=== PATIENT | male | born 1940 | race Caucasian/White ===

== ENCOUNTER 2016-10-22 21:26 | Inpatient (IN) | payer OTHER ==
--- NOTE | ~2016-10-22 | CN ---
Consultation Report [facility] [address] [place]. [address] NAME: ARON SALINAS : [birth year] STATUS : ADM IN PAT#: [id number] AGE: 76 ADM/REG DATE : 10/22/16 MR#: [id number] REPORT SERV DATE: 10/26/16 DICTATED BY: ZULAY KERNS DATE: 10/25/16 REPORT STATUS : Draft TRANSCRIBED BY: MODL DATE: 10/25/16 GI CONSULTATION DATE OF CONSULTATION: 10/25/2016 REASON FOR CONSULTATION: Coffee-ground emesis after receiving tPA. HISTORY OF PRESENT ILLNESS: Mr. Salinas is a 76-year-old gentleman who has been admitted under the service of Vascular Surgery who had a bilateral lower extremity venogram on the 10/24/2016 and was found to have iliofemoral and IVC DVT which has markedly improved after what appears to be infusion of tPA in both the lower extremities. Apparently, the patient has been found to have some sensitivity to heparin and has been started on Xarelto. The patient is on 15 mg of Xarelto b.i.d. The patient has had an episode of coffee-grounds emesis and we were consulted for further evaluation. The patient's hemoglobin this evening around 7 o'clock was 7.5. Earlier, it was 8.4 and 8.6. Yesterday, it was 7.9. The patient has not received any packed cell transfusions. The patient denies any history of peptic ulcer disease. HOME MEDICATIONS: Include insulin and other medications as listed. Presently, he is on Xarelto, Keppra, and other p.r.n. medications. PHYSICAL EXAMINATION: ABDOMEN: Soft and nondistended and nontender. There is no mass, guarding, rigidity, or rebound. Liver and spleen, not palpable. Clinically, no ascites. LABORATORY DATA: As mentioned above. IMPRESSION: Coffee-grounds emesis, after the patient received tPA and is now on Xarelto. Some mild drop in hemoglobin and hematocrit. RECOMMENDATIONS: We will need EGD. Discussed with the patient and I have also called the and discussed this with her over the phone. JJ/LORENA Carole Kerns M.D. Consultation Report [address] [place]. [address] NAME: ARON SALINAS : [birth year] STATUS : ADM IN PAT#: [id number] AGE: 76 ADM/REG DATE : 10/22/16 MR#: [id number] REPORT SERV DATE: 10/26/16 DICTATED BY: ZULAY KERNS DATE: 10/25/16 REPORT STATUS : Draft TRANSCRIBED BY: LORENA DATE: 10/25/16 / [id number] CC: Mesha Minaya MD
--- NOTE | ~2016-10-22 | EGD ---
EGD REPORT [facility] [address] [place] [address] NAME: ARON SALINAS : 38 STATUS : ADM IN PAT#: [id number] AGE: 76 ADM/REG DATE : 10/22/16 MR#: [id number] REPORT SERV DATE: 10/26/16 DICTATED BY: ZULAY WHITAKER DATE: 10/26/16 REPORT STATUS : Draft TRANSCRIBED BY: [employer] DATE: 10/26/16 [facility] Patient Name: Aron Salinas. Date of : 1940 Attending MD: TMI WHITAKER MD Procedure Date No Time: 10/26/2016 Procedure: Upper GI endoscopy Indications: Hematemesis Referring MD: Jose Luis Wadsworth MD Medicines: See the Anesthesia note for documentation of the administered medications Complications: No immediate complications. Estimated blood loss: Minimal. Procedure: Pre-Anesthesia Assessment: - Prior to the procedure, a History and Physical was performed, and patient medications and allergies were reviewed. The patient's tolerance of previous anesthesia was also reviewed. The risks and benefits of the procedure and the sedation options and risks were discussed with the patient. All questions were answered, and informed consent was obtained. Prior Anticoagulants: The patient has taken Xarelto (rivaroxaban) and TPA, last doses were 1 day prior to procedure. ASA Grade Assessment: IV - A patient with severe systemic disease that is a constant threat to life. After reviewing the risks and benefits, the patient was deemed in satisfactory condition to undergo the procedure. After obtaining informed consent, the endoscope was passed under direct vision. Throughout the procedure, the patient's blood pressure, pulse, and oxygen saturations were monitored continuously. The GIF [id number] was introduced through the mouth, and advanced to the second part of duodenum. The upper GI endoscopy was accomplished without difficulty. The patient tolerated the procedure well. Findings: The examined duodenum was normal. Red blood was found in the stomach. LA Grade D (one or more mucosal breaks involving at least 75% of esophageal circumference) esophagitis with bleeding was found in the lower third of the esophagus. Moderate distal esophageal clot just at the GE junction. Large part of it was dislodged but small part still adherent and this was not removed as patient is on Xarelto and this appears organised. Also evidence of EGD REPORT [address] [place]. [address] NAME: ARON SALINAS : 38 STATUS : ADM [facility]#: [id number] AGE: 76 ADM/REG DATE : 10/22/16 MR#: [id number] REPORT SERV DATE: 10/26/16 DICTATED BY: ZULAY WHITAKER DATE: 10/26/16 REPORT STATUS : Draft TRANSCRIBED BY: [employer] DATE: 10/26/16 fresh blood in the distal esophagus Impression: - Normal examined duodenum. - Red blood in the stomach. - LA Grade D reflux and erosive esophagitis. - Moderate distal esophageal clot just at the GE junction. Large part of it was dislodged but small part still adherent and this was not removed as patient is on Xarelto and this appears organised. Also evidence of fresh blood in the distal esophagus Recommendation: - [facility]. - Clear liquid diet. - Will discuss with hospitalist and vascular service if anticoagulation can be held for 24-48 hours. - Will start on IV PPI drip Procedure Code(s): --- Professional --- 11933, Esophagogastroduodenoscopy, flexible, transoral; diagnostic, including collection of specimen(s) by brushing or washing, when performed (separate procedure) Diagnosis Code(s): --- Professional --- K92.2, Gastrointestinal hemorrhage, unspecified K21.0, Gastro-esophageal reflux disease with esophagitis K20.8, Other esophagitis K92.0, Hematemesis CPT copyright 2013 [employer]. All rights reserved. The codes documented in this report are preliminary and upon wrapper layer and examiner soft work review may be revised to meet current compliance requirements. TIM WHITAKER MD 10/26/2016 7:33 AM This report has been signed electronically. Number of Addenda: 0 Note Initiated On: 10/26/2016 6:40 AM Scope Withdrawal Time 0 hours 0 minutes 0 seconds [address] [place] [id number]
--- NOTE | ~2016-10-22 | OP ---
Record Of Operation [facility] [address] [place]. 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 PROCEDURES: 1. Bilateral lower extremity venogram. 2. Percutaneous angioplasty of the left femoral vein, common femoral vein, external iliac vein, common iliac vein. 3. Percutaneous angioplasty of the right external iliac and common iliac veins. 4. Percutaneous angioplasty of the IVC. SURGEON: Jose Luis Wadsworth M.D. RECORD MAKER: None. ANESTHESIA: MAC plus local. INDICATIONS: The patient is a 76-year-old gentleman who had extensive DVTs. I began thrombolysis overnight and he returns to the operating room for reassessment. DESCRIPTION OF PROCEDURE: After informed consent was obtained, the patient was taken to the operating room and placed in the supine position on the operating table. Monitored anesthesia was administered. The patient's groins and right neck were prepped and draped in the usual sterile fashion. I began by exchanging out my catheters and sheath for a new 11- Welsh sheath. A catheter was placed into the left SFA. A venogram demonstrated improvement in the thrombus. There was a stenosis within the left superficial femoral, common femoral, external iliac, common iliac, and inferior vena cava. I angioplastied the left superficial femoral, common femoral, and external iliac veins with a 10 mm balloon. I angioplastied the common iliac vein and the IVC with a 14 mm balloon. Imaging obtained afterwards showed improvement. I placed a catheter down into the right common femoral vein and obtained imaging that demonstrated external iliac and common iliac vein stenoses on the right. I angioplastied these with a 14 mm balloon. Imaging obtained afterwards showed improvement. Thus, I withdrew my wire, catheter, and sheath and used manual pressure for hemostasis. I placed a stitch additionally for hemostasis. The patient tolerated the procedure well without any intraprocedural complications noted. CHAIN MACHINE OPERATOR/LORENA Jose Luis Wadsworth M.D. Record Of Operation [address] [address] NAME: ARON QUINTANILLA : 38 STATUS : ADM IN [facility]#: [id number] AGE: 76 ADM/REG DATE : 10/22/16 MR#: [id number] REPORT SERV DATE: 10/27/16 DICTATED BY: JOSE LUIS WADSWORTH DATE: 10/27/16 REPORT STATUS : Draft TRANSCRIBED BY: LORENA DATE: 10/27/16 / [id number] CC: Mesha Minaya MD
--- NOTE | ~2016-10-22 | DS ---
Discharge Summary [facility] [address] [facility] [place]. [address] NAME: ARON QUINTANILLA : 38 STATUS : DIS IN PAT#: [id number] AGE: 76 ADM/REG DATE : 10/22/16 MR#: [id number] REPORT SERV DATE: 11/11/16 DICTATED BY: JOSE LUIS WADSWORTH DATE: 11/10/16 REPORT STATUS : Draft TRANSCRIBED BY: MODL DATE: 11/10/16 Data Collection from hospitalization DISCHARGE DIAGNOSES: 1. 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 2. Hypertension. 3. Type 2 diabetes. 4. Alzheimer disease. 5. Dementia. 6. History of cerebrovascular accident/transient ischemic attack. 7. Seizures. 8. Anemia. 9. Neuropathy. 10.Hearing loss. 11.Coronary artery disease. 12.History of myocardial infarction. 13.Asthma. 14.Chronic obstructive pulmonary disease. 15.Arthritis. 16.Anxiety and depression. 17.Benign prostatic hypertrophy. 18.Incontinence. CONSULTATION: Eileen Andrew NP. Dr. Prateek Kerns. PROCEDURES PERFORMED: 1. Bilateral lower extremity and inferior vena cava venogram; AngioJet pharmacomechanical thrombectomy and thrombolysis of the bilateral popliteal vein, femoral veins, common femoral veins, external iliac veins, common iliac veins, and inferior vena cava; infusion catheter placement bilaterally for continued thrombolysis, 10/23/2016. 2. Bilateral lower extremity venogram; percutaneous angioplasty of left femoral vein, common femoral vein, external iliac vein, common iliac vein; percutaneous angioplasty of right external iliac and common iliac veins; percutaneous angioplasty of the IVC, 10/24/2016. 3. Upper GI endoscopy, 10/26/2016. 4. Venous Doppler ultrasound of the left upper extremity, 10/25/2016. 5. CTA of the chest, 10/27/2016. DISCHARGE MEDICATIONS: Proscar 5 mg daily, Keppra 500 mg twice a day, Flomax 0.4 mg daily. He was not to continue metformin, albuterol, Lotensin, or Dexilant. Hospice would provide pain medication as needed. CONDITION AT DISCHARGE: Stable. DISPOSITION: The patient was discharged home to be followed by [facility]. HOSPITAL COURSE: This is a 76-year-old man, who has a history of deep venous thrombosis, who has had an IVC filter placed in the past, who now had a recurrent deep venous thrombosis Discharge Summary [facility] [address] [place]. [address] NAME: ARON QUINTANILLA : 38 STATUS : DIS IN PAT#: [id number] AGE: 76 ADM/REG DATE : 10/22/16 MR#: [id number] REPORT SERV DATE: 11/11/16 DICTATED BY: JOSE LUIS WADSWORTH DATE: 11/10/16 REPORT STATUS : Draft TRANSCRIBED BY: LORENA DATE: 11/10/16 after percutaneous thrombectomy a few months prior to this admission. He consented for intervention. We spoke to him extensively about performing an intervention as there were some concerns about spotting that he had in a stool. There were also some concern about the chronicity of the thrombus. The patient said that the pain was such that he could not tolerate it. He had no obvious evidence of phlegmasia, but he said that the swelling and tightness were unbearable. He agreed to proceed and was admitted to the hospital at this time for further evaluation and treatment. Upon admission, he was seen by Eileen Andrew. The patient has Alzheimer's dementia and was unable to give a history. Creatinine level was 1.11, potassium was 4.5. Venous Doppler ultrasound was obtained at [facility], which showed an extensive right lower extremity DVT from the groin inferiorly. CT scan of the chest showed small right lower lobe pulmonary embolus. CT scan of the abdomen showed that there had been placement of inferior vena cava filter. In 2010, a myocardial perfusion imaging study had shown left ventricular ejection fraction of 52%. He was on DVT and pulmonary embolus heparin protocol. He had been placed on telemetry. Portable chest x-ray was going to be checked. The patient was on metformin normally at home for his type 2 diabetes. He was being held n.p.o. for possible venogram the following morning. As he was able to eat, he was going to be placed on a 1500 calorie diabetic diet. A swallow evaluation was requested. EKG was going to be obtained. Hydralazine would be given if his blood pressure systolic was greater than 165. The patient's daughter states that he does have seizures and he is on Keppra at home. This was continued to prevent seizure. He was going to receive IV morphine for pain control. He would be watched for over sedation. The following day, he was taken to the operating room, where he underwent the above-mentioned procedure. He tolerated this well and there were no complications. On the , there was no oozing from the right internal jugular sheath site. He was afebrile. TPA infusion was going to be continued. He was in a normal sinus rhythm. IV fluids were stopped. He was taken back to the operating room, where he underwent the above-mentioned procedure. He tolerated this well and there were no complications. On the , he was resting quietly. Xarelto had been started as plan. The patient had a large area of swelling and bruising of the left biceps since the previous evening. Venous Doppler ultrasound of the left upper extremity was performed. An Deangelo compression wrap was going to be applied to the left arm. There was no evidence of deep venous thrombosis. He was seen by Dr. Prateek Kerns regarding coffee-grounds emesis after receiving tPA. The patient had an episode of coffee-grounds emesis. Hemoglobin that evening was around 7.5; earlier in the day, it had been 8.4 and 8.6; the day previously, it had been 7.9. He had not received any packed cell transfusion. He denies any history of peptic ulcer disease. It was felt that he would need to undergo an EGD. On 10/26/2016, he was taken to the endoscopic suite by Dr. Prateek Kerns, where he underwent upper GI endoscopy. He tolerated this well and there were no complications. He had a normal examined duodenum. There was red blood in the stomach. LA grade D reflux and erosive esophagitis were seen. He had moderate distal esophageal clot just at the GE junction. A large part of it was dislodged, but the small part was still adherent, and this was not removed as the patient is on Xarelto, and this appeared organized. There was also evidence of fresh blood in the distal esophagus. Compression remained on the bilateral lower extremities. Xarelto was on hold for now. Deangelo wrap was in place on the left biceps. The next day, he had been transfused packed red blood cells. He had not had a bowel Discharge Summary [place] [address] [place]. [address] NAME: ARON QUINTANILLA : 38 STATUS : DIS IN PAT#: [id number] AGE: 76 ADM/REG DATE : 10/22/16 MR#: [id number] REPORT SERV DATE: 11/11/16 DICTATED BY: JOSE LUIS WADSWORTH DATE: 11/10/16 REPORT STATUS : Draft TRANSCRIBED BY: LORENA DATE: 11/10/16 movement in several days. HIT panel was obtained. Lasix was given with packed red blood cells. A CTA of the chest was performed. He did complain of hunger pain. Full liquids were being provided. Anticoagulation remained on hold. He did complain of some left chest pain and back pain. He said it had been hurting all day. On the , his leg pain had improved. CTA had shown right lower lobe pulmonary embolus. Heparin had been started. Hemoglobin level was stable. Proton pump inhibitor drip was stopped. Carafate was being given. He was going to be placed on soft diet. He was evaluated by Physical Therapy. The next day, his lower extremity edema was unchanged. Hemoglobin was stable. Discharge planning was performed. His shortness of breath was stable. He still complained of some left chest pain with deep breathing. He does complain of chronic bilateral lower extremity pain. On 10/30/2016, he was in no acute distress. He remained afebrile. He had mild edema of the bilateral lower extremities. He had no tenderness. He said he had slept well. He had only slight chest pain. He was evaluated by [facility]. He said he was reluctant to go to rehab as he felt it was a halfway. Family had asked for a hospice consult as a backup option if he refused all rehab. [facility] liaison met with the patient and his . Hospice services and philosophies were discussed. Discharge instructions were given. Due to his improved and stable condition, he was discharged home to be followed by [facility] with the above-stated instructions. Information collected by: Aziza Samaniego I submit the above information as my discharge summary. AVIS/LORENA Jose Luis Wadsworth M.D. / [id number] CC: Mesha Minaya MD [facility] M.D.
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
--- NOTE | ~2016-10-22 | OP ---
Record Of Operation [facility] [address] [place]. [address] NAME: ARON QUINTANILLA : 38 STATUS : ADM IN [facility]#: [id number] AGE: 76 ADM/REG DATE : 10/22/16 MR#: [id number] REPORT SERV DATE: 10/23/16 DICTATED BY: JOSE LUIS WADSWORTH DATE: 10/23/16 REPORT STATUS : Draft TRANSCRIBED BY: MODL DATE: 10/23/16 DATE OF PROCEDURE: 10/23/2016 PREOPERATIVE DIAGNOSIS: Bilateral lower extremity deep venous thrombosis. 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 PROCEDURES: 1. Bilateral lower extremity and inferior vena cava venogram. 2. AngioJet pharmacomechanical thrombectomy and thrombolysis of the bilateral popliteal veins, femoral veins, common femoral veins, external iliac veins, common iliac veins, and inferior vena cava. 3. Infusion catheter placement bilaterally for continued thrombolysis. SURGEON: Jose Luis Wadsworth M.D. OPENER VERIFIER PACKER CUSTOMS: Lynn Rowell MD. ANESTHESIA: MAC plus local. INDICATIONS: The patient is a 76-year-old gentleman with a history of DVTs who has had an IVC filter placed in the past. 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 Thus, he was consented for intervention. I did talk to him extensively about performing an intervention, as I had some concerns about some spotting that he has in his stool. I also had some concerns about the chronicity of this thrombus. The patient says that the pain is such that he cannot tolerate it. He has no obvious evidence of phlegmasia, but he says that the swelling and tightness is unbearable. Thus, he, his , and his daughter all consented for intervention. DESCRIPTION OF PROCEDURE: After informed consent was obtained, the patient was taken to the operating room and placed in the supine position on the operating table. Monitored anesthesia was administered. The patient's bilateral lower extremities as well as right neck were prepped and draped in the usual sterile fashion. Ultrasound-guided access was obtained of the right internal jugular vein. The ultrasound image was documented on the chart. We passed a wire centrally. We got a wire down into the IVC and met some resistance at the level of the IVC filter. We placed the sheath and placed a catheter into the IVC by the filter. We obtained a venogram that demonstrated really little flow in the filter. We were able to get a wire and catheter into the left femoral vein. A venogram from this point demonstrated thrombus. I passed a wire and catheter down into the popliteal vein. A venogram from this point demonstrated thrombus. I then placed an 8-Guyanese 45 cm sheath and performed AngioJet pharmacomechanical thrombectomy and thrombolysis of the left popliteal vein, femoral vein, common femoral vein, external iliac vein, common iliac vein, and IVC. Imaging obtained afterwards showed improvement, but there was still a lot of residual thrombus. I then pulled back my wire and selected out the right femoral vein. Imaging from this point demonstrated thrombus. I moved a wire and catheter into the right popliteal Record Of [address] [place]. [address] NAME: ARON QUINTANILLA : 38 STATUS : ADM IN [facility]#: [id number] AGE: 76 ADM/REG DATE : 10/22/16 MR#: [id number] REPORT SERV DATE: 10/23/16 DICTATED BY: JOSE LUIS WADSWORTH DATE: 10/23/16 REPORT STATUS : Draft TRANSCRIBED BY: MODEliseo DATE: 10/23/16 vein. There was thrombus there also on imaging. I then performed AngioJet pharmacomechanical thrombectomy and thrombolysis of the right popliteal vein, femoral vein, common femoral vein, external iliac vein, common iliac vein, and IVC. Imaging obtained afterwards showed improvement, but still residual thrombus. I exchanged out my sheath for an 8-Guyanese sheath. I then pushed the infusion catheters with 50-cm treatment length extending from the popliteal veins into the femoral veins bilaterally. I had to use an additional introducer from a 5-Guyanese sheath to the help plug the hole from the valvular bleeding from the 11-Guyanese sheath. We also used bone wax to help seal off this valve. We were careful not to get it into our sheath. We began infusing thrombolytics through the catheters and heparin through the sheath. The patient tolerated the procedure well without any intraprocedural complications noted. RIMMA/LORENA Jose Luis Wadsworth M.D. / [id number] CC: Mesha Minaya MD
[2016-10-23 05:02] LABS: BASOPHILS 0.2 %; BASOPHILS ABSOLUTE 0.01 10/3/uL (0.0-0.16); EOSINOPHILS 8.6 %; EOSINOPHILS ABSOLUTE 0.51 10/3/uL (0.0-0.53); IMMATURE GRANULOCYTES 0.2 %; IMMATURE GRANULOCYTES ABSOLUTE 0.01 10/3/uL (0.0-0.11); LYMPHOCYTES 12.1 %; LYMPHOCYTES ABSOLUTE 0.72 10/3/uL (0.67-4.30); MEAN PLATELET VOLUME 11.1 fL (9.2-13.0); MONOCYTES 6.6 %; MONOCYTES ABSOLUTE 0.39 10/3/uL (0.21-1.20); NEUTROPHILS 72.3 %; NEUTROPHILS ABSOLUTE 4.29 10/3/uL (2.02-8.40); PLATELET COUNT 145 10/3/uL (150-400); RBC DISTRIBUTION WIDTH 15.3 % (12.0-16.0); WHITE BLOOD CELLS 5.9 10/3/uL (4.5-10.5)
[2016-10-23 05:03] LABS: HEMATOCRIT 29.3 % (40.0-51.0); HEMOGLOBIN 9.2 g/dL (13.6-17.8); MEAN CORPUS HGB CONC 31.4 g/dL (32.0-36.0); MEAN CORPUSCULAR HEMOGLOB 25.6 pg (26.0-34.0); MEAN CORPUSCULAR VOLUME 81.4 fL (80-100)
[2016-10-23 05:04] LABS: MANUAL DIFF NO %
[2016-10-23 05:08] LABS: ALBUMIN 3.5 G/DL (3.5-5.0); ALKALINE PHOSPHATASE 55 U/L (45-117); BUN (BLOOD UREA NITROGEN) 15 MG/DL (6-23); CALCIUM, SERUM 8.6 MG/DL (8.5-10.4); CHLORIDE, SERUM 105 MMOL/L (96-112); CO2 (CARBON DIOXIDE) 24 MMOL/L (24-34); CREATININE 0.98 MG/DL (0.70-1.30); GFR AFRICAN AMERICAN 86 ML/MIN (>=60); GFR NON AFRICAN AMERICAN 74 ML/MIN (>=60); GLOBULIN 3.4 G/DL (2.5-4.1); GLUCOSE, SERUM 127 MG/DL (60-99); PHOSPHORUS, SERUM 3.5 MG/DL (2.5-4.5); POTASSIUM, SERUM 3.9 MMOL/L (3.5-5.3); SGOT(AST) 14 U/L (5-40); SGPT(ALT) 15 U/L (5-65); SODIUM, SERUM 139 MMOL/L (135-148); TOTAL BILIRUBIN 0.4 MG/DL (0-1.2); TOTAL PROTEIN 6.9 G/DL (6.0-8.5)
[2016-10-23 05:17] LABS: ASCORBIC ACID (UR NOT ORDER) NEG (NEG); BILIRUBIN, URINE NEGATIVE (NEG); KETONE, URINE NEGATIVE (NEG); LEUKOCYTE ESTERASE(NOT OR NEG (NEG); WBC (NOT ORDERED) (RFLEX) 1 (0-5)
[2016-10-23] MEDS ORDERED: CLONAZEPAM (11:40)
[2016-10-23] MEDS ORDERED: ADVAIR (11:40)
[2016-10-23] MEDS ORDERED: BENAZEPRIL (11:40)
[2016-10-23] MEDS ORDERED: ALBUTEROL NEB (11:40)
[2016-10-23] MEDS ORDERED: DUONEB (11:41)
[2016-10-23] MEDS ORDERED: PROSCAR (11:41)
[2016-10-23] MEDS ORDERED: PLAVIX (11:41)
[2016-10-23] MEDS ORDERED: DEXILANT (11:41)
[2016-10-23] MEDS ORDERED: KEPPRA (11:41)
[2016-10-23] MEDS ORDERED: METFORMIN (11:41)
[2016-10-23] MEDS ORDERED: FLOMAX (11:41)
[2016-10-23] MEDS ORDERED: *UNABLE1 (11:42)
[2016-10-23 21:13] LABS: BASOPHILS 0.1 %; BASOPHILS ABSOLUTE 0.01 10/3/uL (0.0-0.16); EOSINOPHILS 1.7 %; EOSINOPHILS ABSOLUTE 0.15 10/3/uL (0.0-0.53); HEMATOCRIT 27.5 % (40.0-51.0); HEMOGLOBIN 8.4 g/dL (13.6-17.8); IMMATURE GRANULOCYTES 0.1 %; IMMATURE GRANULOCYTES ABSOLUTE 0.01 10/3/uL (0.0-0.11); LYMPHOCYTES 5.5 %; MEAN CORPUS HGB CONC 30.5 g/dL (32.0-36.0); MEAN CORPUSCULAR VOLUME 81.8 fL (80-100); MONOCYTES 5.3 %; MONOCYTES ABSOLUTE 0.48 10/3/uL (0.21-1.20); NEUTROPHILS 87.3 %; NEUTROPHILS ABSOLUTE 7.86 10/3/uL (2.02-8.40); NUCLEATED RED BLOOD CELLS 0.2 /100WBC (0-0); PARTIAL THROMBO TIME 46.7 SEC (22.5-37.2); PLATELET COUNT 110 10/3/uL (150-400); RBC DISTRIBUTION WIDTH 15.6 % (12.0-16.0); RED CELL COUNT 3.36 10/6/uL (4.7-6.1)
[2016-10-23 21:16] LABS: BUN (BLOOD UREA NITROGEN) 16 MG/DL (6-23); CALCIUM, SERUM 7.7 MG/DL (8.5-10.4); CHLORIDE, SERUM 108 MMOL/L (96-112); CO2 (CARBON DIOXIDE) 24 MMOL/L (24-34); CREATININE 1.13 MG/DL (0.70-1.30); GFR AFRICAN AMERICAN 72 ML/MIN (>=60); GFR NON AFRICAN AMERICAN 62 ML/MIN (>=60); SODIUM, SERUM 141 MMOL/L (135-148)
[2016-10-23 21:17] LABS: GLUCOSE, SERUM 180 MG/DL (60-99); MANUAL DIFF NO %
[2016-10-23 21:18] LABS: POTASSIUM, SERUM 3.9 MMOL/L (3.5-5.3)
[2016-10-23 21:19] LABS: FIBRINOGEN 81 MG/DL (230-462)
[2016-10-24 00:21] LABS: ALLENS TEST Pos; BE (BASE EXCESS) -2.4 MEQ/L (0 +/- 2.5); CARBOXYHEMOGLOBIN 0.7 % (0-3); DEVICE SM; HCO3 (ACTUAL BICARBONATE) 21.4 MEQ/L (23-27); HEMOBLOGIN CONTENT 8.8 G/DL (14-18); INSTRUMENT SERIAL # 11843; O2 CONTENT 12.5 VOL% (18-24); OPERATOR ID 32193; PCO2 (CO2 TENSION) 33 MMHG (35-45); PO2 (O2 TENSION) 184 MMHG (79-93); SAMPLE Arterial; pH 7.43 (7.37-7.43)
[2016-10-24 01:31] LABS: HEMATOCRIT 26.5 % (40.0-51.0); HEMOGLOBIN 8.5 g/dL (13.6-17.8); MEAN CORPUSCULAR HEMOGLOB 25.8 pg (26.0-34.0); MEAN CORPUSCULAR VOLUME 80.3 fL (80-100); MEAN PLATELET VOLUME 10.1 fL (9.2-13.0); PLATELET COUNT 102 10/3/uL (150-400); RBC DISTRIBUTION WIDTH 15.3 % (12.0-16.0)
[2016-10-24 01:35] LABS: MANUAL DIFF YES %; MEAN CORPUS HGB CONC 32.1 g/dL (32.0-36.0)
[2016-10-24 01:42] LABS: PARTIAL THROMBO TIME 42.5 SEC (22.5-37.2)
[2016-10-24 01:44] LABS: BUN (BLOOD UREA NITROGEN) 18 MG/DL (6-23); CALCIUM, SERUM 7.4 MG/DL (8.5-10.4); CHLORIDE, SERUM 108 MMOL/L (96-112); CO2 (CARBON DIOXIDE) 25 MMOL/L (24-34); CREATININE 1.18 MG/DL (0.70-1.30); GFR AFRICAN AMERICAN 69 ML/MIN (>=60); GFR NON AFRICAN AMERICAN 59 ML/MIN (>=60); GLUCOSE, SERUM 196 MG/DL (60-99); SODIUM, SERUM 141 MMOL/L (135-148)
[2016-10-24 01:48] LABS: POTASSIUM, SERUM 4.1 MMOL/L (3.5-5.3)
[2016-10-24 01:51] LABS: EOSINOPHILS 5 %; EOSINOPHILS ABSOLUTE (CALC) 0.45 10/3/uL (0.0-0.53); LYMPHOCYTES 5 %; LYMPHOCYTES ABSOLUTE (CALC) 0.45 10/3/uL (0.67-4.30); MONOCYTES 1 %; MONOCYTES ABSOLUTE (CALC) 0.09 10/3/uL (0.21-1.20); NEUTROPHILS ABSOLUTE (CALC) 8.01 10/3/uL (2.02-8.40); SEGMENTED NEUTROPHIL (0) 89 %; TOTAL NUCLEATED CELLS 100
[2016-10-24 01:52] LABS: PLATELET ESTIMATE SLT DEC (ADEQUATE); RBC MORPHOLOGY NORM (NORMAL)
[2016-10-24 07:15] LABS: HEMATOCRIT 25.7 % (40.0-51.0); HEMOGLOBIN 8.4 g/dL (13.6-17.8)
[2016-10-24 07:27] LABS: PARTIAL THROMBO TIME 41.2 SEC (22.5-37.2)
[2016-10-24 07:32] LABS: FIBRINOGEN 101 MG/DL (230-462)
[2016-10-24] MEDS ORDERED: ALBUTEROL5 INH (14:15)
[2016-10-24] MEDS ORDERED: LOTE10 PO (14:16)
[2016-10-24] MEDS ORDERED: KLONO5 PO (14:17)
[2016-10-24] MEDS ORDERED: PROAIR HFA INH (14:17)
[2016-10-24] MEDS ORDERED: KEPPRA500 PO (14:17)
[2016-10-24] MEDS ORDERED: KAPIDEX60 MG PO (14:17)
[2016-10-24] MEDS ORDERED: PLAVIX PO (14:17)
[2016-10-24] MEDS ORDERED: FLOMAX4 PO (14:18)
[2016-10-24] MEDS ORDERED: PROSCAR5 PO (14:18)
[2016-10-24] MEDS ORDERED: GLUCPH PO (14:19)
[2016-10-24 19:11] LABS: HEMATOCRIT 24.8 % (40.0-51.0); HEMOGLOBIN 7.9 g/dL (13.6-17.8)
[2016-10-24 19:23] LABS: INTERNATIONAL NORMAL RATI 1.4 UNITS (-); PROTIME (NOT ORD) 17.3 SEC (12.0-14.5)
[2016-10-24 19:24] LABS: HIT PTT 40.8 SEC (22.5-37.2); PARTIAL THROMBO TIME 40.8 SEC (22.5-37.2)
[2016-10-25 07:48] LABS: BASOPHILS 0.1 %; BASOPHILS ABSOLUTE 0.01 10/3/uL (0.0-0.16); EOSINOPHILS 1.5 %; EOSINOPHILS ABSOLUTE 0.12 10/3/uL (0.0-0.53); HEMOGLOBIN 8.6 g/dL (13.6-17.8); IMMATURE GRANULOCYTES 0.2 %; IMMATURE GRANULOCYTES ABSOLUTE 0.02 10/3/uL (0.0-0.11); LYMPHOCYTES 6.3 %; LYMPHOCYTES ABSOLUTE 0.52 10/3/uL (0.67-4.30); MEAN CORPUS HGB CONC 31.3 g/dL (32.0-36.0); MEAN CORPUSCULAR HEMOGLOB 25.1 pg (26.0-34.0); MEAN CORPUSCULAR VOLUME 80.4 fL (80-100); MEAN PLATELET VOLUME 10.4 fL (9.2-13.0); MONOCYTES 4.3 %; MONOCYTES ABSOLUTE 0.35 10/3/uL (0.21-1.20); NEUTROPHILS 87.6 %; NEUTROPHILS ABSOLUTE 7.18 10/3/uL (2.02-8.40); PLATELET COUNT 118 10/3/uL (150-400); RBC DISTRIBUTION WIDTH 15.6 % (12.0-16.0); RED CELL COUNT 3.42 10/6/uL (4.7-6.1); WHITE BLOOD CELLS 8.2 10/3/uL (4.5-10.5)
[2016-10-25 07:50] LABS: HEMATOCRIT 27.5 % (40.0-51.0)
[2016-10-25 07:51] LABS: MANUAL DIFF NO %
[2016-10-25 07:59] LABS: BUN (BLOOD UREA NITROGEN) 17 MG/DL (6-23); CHLORIDE, SERUM 104 MMOL/L (96-112); CO2 (CARBON DIOXIDE) 28 MMOL/L (24-34); CREATININE 0.99 MG/DL (0.70-1.30); GFR AFRICAN AMERICAN 85 ML/MIN (>=60); GFR NON AFRICAN AMERICAN 73 ML/MIN (>=60); POTASSIUM, SERUM 4.2 MMOL/L (3.5-5.3); SODIUM, SERUM 142 MMOL/L (135-148)
[2016-10-25 08:02] LABS: GLUCOSE, SERUM 151 MG/DL (60-99)
[2016-10-25 14:01] LABS: FERRITIN 223 NG/ML (26-388); IRON BINDING CAPACITY 201 MCG/DL (250-450)
[2016-10-25 14:36] LABS: HEMATOCRIT 26.6 % (40.0-51.0); HEMOGLOBIN 8.4 g/dL (13.6-17.8); RETICULOCYTE COUNT 2.4 % (0.5-2.5); RETICULOCYTE COUNT ABSOLUTE 78.9 10/3/uL (20.2-119.8)
[2016-10-25 14:43] LABS: PARTIAL THROMBO TIME 36.5 SEC (22.5-37.2)
[2016-10-25 14:44] LABS: INTERNATIONAL NORMAL RATI 1.5 UNITS (-); PROTIME (NOT ORD) 17.7 SEC (12.0-14.5)
[2016-10-25 19:50] LABS: HEMATOCRIT 24.7 % (40.0-51.0); HEMOGLOBIN 7.5 g/dL (13.6-17.8)
[2016-10-26 01:08] LABS: HEMATOCRIT 24.1 % (40.0-51.0); HEMOGLOBIN 7.7 g/dL (13.6-17.8)
[2016-10-26 06:41] LABS: BASOPHILS 0.1 %; BASOPHILS ABSOLUTE 0.01 10/3/uL (0.0-0.16); EOSINOPHILS 9.7 %; EOSINOPHILS ABSOLUTE 0.69 10/3/uL (0.0-0.53); HEMATOCRIT 23.4 % (40.0-51.0); HEMOGLOBIN 7.4 g/dL (13.6-17.8); IMMATURE GRANULOCYTES 0.1 %; IMMATURE GRANULOCYTES ABSOLUTE 0.01 10/3/uL (0.0-0.11); LYMPHOCYTES 8.7 %; LYMPHOCYTES ABSOLUTE 0.62 10/3/uL (0.67-4.30); MEAN CORPUS HGB CONC 31.6 g/dL (32.0-36.0); MEAN CORPUSCULAR HEMOGLOB 25.4 pg (26.0-34.0); MEAN CORPUSCULAR VOLUME 80.4 fL (80-100); MEAN PLATELET VOLUME 9.7 fL (9.2-13.0); MONOCYTES 5.3 %; MONOCYTES ABSOLUTE 0.38 10/3/uL (0.21-1.20); NEUTROPHILS 76.1 %; NEUTROPHILS ABSOLUTE 5.43 10/3/uL (2.02-8.40); PLATELET COUNT 131 10/3/uL (150-400); RBC DISTRIBUTION WIDTH 15.6 % (12.0-16.0); RED CELL COUNT 2.91 10/6/uL (4.7-6.1); WHITE BLOOD CELLS 7.1 10/3/uL (4.5-10.5)
[2016-10-26 06:42] LABS: MANUAL DIFF NO %
[2016-10-26 06:48] LABS: INTERNATIONAL NORMAL RATI 1.9 UNITS (-)
[2016-10-26 06:52] LABS: PROTIME (NOT ORD) 21.4 SEC (12.0-14.5)
[2016-10-26 06:53] LABS: CALCIUM, SERUM 7.7 MG/DL (8.5-10.4); CHLORIDE, SERUM 104 MMOL/L (96-112); CO2 (CARBON DIOXIDE) 27 MMOL/L (24-34); CREATININE 0.81 MG/DL (0.70-1.30); GFR AFRICAN AMERICAN 99 ML/MIN (>=60); GFR NON AFRICAN AMERICAN 86 ML/MIN (>=60); POTASSIUM, SERUM 3.5 MMOL/L (3.5-5.3); SODIUM, SERUM 140 MMOL/L (135-148)
[2016-10-26 06:54] LABS: BUN (BLOOD UREA NITROGEN) 13 MG/DL (6-23); GLUCOSE, SERUM 105 MG/DL (60-99)
[2016-10-26 09:18] LABS: HEMATOCRIT 23.9 % (40.0-51.0); HEMOGLOBIN 7.4 g/dL (13.6-17.8); RETICULOCYTE COUNT 2.3 % (0.5-2.5); RETICULOCYTE COUNT ABSOLUTE 67.2 10/3/uL (20.2-119.8)
[2016-10-26 09:34] LABS: % IRON SAT 35 % (20-50); FERRITIN 189 NG/ML (26-388); IRON BINDING CAPACITY 190 MCG/DL (250-450); IRON, SERUM 67 MCG/DL (35-150)
[2016-10-26 18:25] LABS: HEMATOCRIT 26.3 % (40.0-51.0)
[2016-10-27 00:26] LABS: HEMATOCRIT 24.3 % (40.0-51.0); HEMOGLOBIN 7.7 g/dL (13.6-17.8)
[2016-10-27 06:23] LABS: BASOPHILS 0.2 %; BASOPHILS ABSOLUTE 0.01 10/3/uL (0.0-0.16); EOSINOPHILS 12.1 %; EOSINOPHILS ABSOLUTE 0.59 10/3/uL (0.0-0.53); HEMATOCRIT 24.7 % (40.0-51.0); HEMOGLOBIN 7.7 g/dL (13.6-17.8); IMMATURE GRANULOCYTES 0.8 %; IMMATURE GRANULOCYTES ABSOLUTE 0.04 10/3/uL (0.0-0.11); LYMPHOCYTES 14.6 %; LYMPHOCYTES ABSOLUTE 0.71 10/3/uL (0.67-4.30); MEAN CORPUS HGB CONC 31.2 g/dL (32.0-36.0); MEAN CORPUSCULAR HEMOGLOB 25.2 pg (26.0-34.0); MEAN PLATELET VOLUME 9.9 fL (9.2-13.0); MONOCYTES 9.7 %; MONOCYTES ABSOLUTE 0.47 10/3/uL (0.21-1.20); NEUTROPHILS 62.6 %; NEUTROPHILS ABSOLUTE 3.05 10/3/uL (2.02-8.40); PLATELET COUNT 146 10/3/uL (150-400); RBC DISTRIBUTION WIDTH 16.5 % (12.0-16.0); RED CELL COUNT 3.05 10/6/uL (4.7-6.1); WHITE BLOOD CELLS 4.9 10/3/uL (4.5-10.5)
[2016-10-27 06:24] LABS: MANUAL DIFF NO %
[2016-10-27 06:34] LABS: ALKALINE PHOSPHATASE 44 U/L (45-117); BUN (BLOOD UREA NITROGEN) 13 MG/DL (6-23); CALCIUM, SERUM 7.5 MG/DL (8.5-10.4); CHLORIDE, SERUM 107 MMOL/L (96-112); CO2 (CARBON DIOXIDE) 28 MMOL/L (24-34); CREATININE 0.89 MG/DL (0.70-1.30); GFR AFRICAN AMERICAN 96 ML/MIN (>=60); GFR NON AFRICAN AMERICAN 82 ML/MIN (>=60); POTASSIUM, SERUM 3.3 MMOL/L (3.5-5.3); SGOT(AST) 17 U/L (5-40); SGPT(ALT) 10 U/L (5-65); SODIUM, SERUM 144 MMOL/L (135-148)
[2016-10-27 06:35] LABS: ALBUMIN 2.7 G/DL (3.5-5.0); GLOBULIN 2.6 G/DL (2.5-4.1); GLUCOSE, SERUM 75 MG/DL (60-99); TOTAL BILIRUBIN 0.9 MG/DL (0-1.2); TOTAL PROTEIN 5.3 G/DL (6.0-8.5)
[2016-10-27 13:46] LABS: HEPARIN-INDUCED PLATELET AB NEGATIVE (NEGATIVE); HIT PATIENT O.D. 0.095 OD (0.000-0.299)
[2016-10-27 14:50] LABS: HEMATOCRIT 30.5 % (40.0-51.0); HEMOGLOBIN 9.7 g/dL (13.6-17.8)
[2016-10-27 15:05] LABS: ASCORBIC ACID (UR NOT ORDER) NEG (NEG); BILIRUBIN, URINE NEGATIVE (NEG); KETONE, URINE NEGATIVE (NEG); LEUKOCYTE ESTERASE(NOT OR SMALL (NEG); WBC (NOT ORDERED) (RFLEX) 1 (0-5)
[2016-10-28 00:11] LABS: HEMATOCRIT 27.9 % (40.0-51.0); HEMOGLOBIN 9.1 g/dL (13.6-17.8)
[2016-10-28 06:45] LABS: BASOPHILS 0.5 %; BASOPHILS ABSOLUTE 0.03 10/3/uL (0.0-0.16); EOSINOPHILS 10.3 %; HEMATOCRIT 29.5 % (40.0-51.0); HEMOGLOBIN 9.4 g/dL (13.6-17.8); IMMATURE GRANULOCYTES 1.4 %; IMMATURE GRANULOCYTES ABSOLUTE 0.08 10/3/uL (0.0-0.11); LYMPHOCYTES 15.4 %; MEAN CORPUS HGB CONC 31.9 g/dL (32.0-36.0); MEAN CORPUSCULAR HEMOGLOB 25.5 pg (26.0-34.0); MEAN CORPUSCULAR VOLUME 80.2 fL (80-100); MEAN PLATELET VOLUME 10.5 fL (9.2-13.0); MONOCYTES 11.1 %; MONOCYTES ABSOLUTE 0.65 10/3/uL (0.21-1.20); NEUTROPHILS 61.3 %; NEUTROPHILS ABSOLUTE 3.57 10/3/uL (2.02-8.40); PLATELET COUNT 161 10/3/uL (150-400); WHITE BLOOD CELLS 5.8 10/3/uL (4.5-10.5)
[2016-10-28 06:48] LABS: MANUAL DIFF NO %; RED CELL COUNT 3.68 10/6/uL (4.7-6.1)
[2016-10-28 07:04] LABS: BUN (BLOOD UREA NITROGEN) 13 MG/DL (6-23); CALCIUM, SERUM 7.4 MG/DL (8.5-10.4); CHLORIDE, SERUM 107 MMOL/L (96-112); CO2 (CARBON DIOXIDE) 26 MMOL/L (24-34); CREATININE 0.97 MG/DL (0.70-1.30); GFR AFRICAN AMERICAN 87 ML/MIN (>=60); GFR NON AFRICAN AMERICAN 75 ML/MIN (>=60); GLUCOSE, SERUM 84 MG/DL (60-99); POTASSIUM, SERUM 3.9 MMOL/L (3.5-5.3); SODIUM, SERUM 145 MMOL/L (135-148); TROPONIN I 0.02 NG/ML (<0.05)
[2016-10-28 14:23] LABS: HEMATOCRIT 28.8 % (40.0-51.0); HEMOGLOBIN 9.4 g/dL (13.6-17.8)
[2016-10-29 07:30] LABS: BASOPHILS 0.2 %; BASOPHILS ABSOLUTE 0.01 10/3/uL (0.0-0.16); EOSINOPHILS 8.9 %; EOSINOPHILS ABSOLUTE 0.41 10/3/uL (0.0-0.53); HEMATOCRIT 28.8 % (40.0-51.0); HEMOGLOBIN 9.3 g/dL (13.6-17.8); IMMATURE GRANULOCYTES 0.4 %; IMMATURE GRANULOCYTES ABSOLUTE 0.02 10/3/uL (0.0-0.11); LYMPHOCYTES ABSOLUTE 0.69 10/3/uL (0.67-4.30); MEAN CORPUS HGB CONC 32.3 g/dL (32.0-36.0); MEAN CORPUSCULAR HEMOGLOB 26.3 pg (26.0-34.0); MEAN CORPUSCULAR VOLUME 81.6 fL (80-100); MEAN PLATELET VOLUME 9.3 fL (9.2-13.0); MONOCYTES 11.7 %; MONOCYTES ABSOLUTE 0.54 10/3/uL (0.21-1.20); NEUTROPHILS 63.8 %; NEUTROPHILS ABSOLUTE 2.94 10/3/uL (2.02-8.40); PLATELET COUNT 171 10/3/uL (150-400); RBC DISTRIBUTION WIDTH 16.5 % (12.0-16.0); RED CELL COUNT 3.53 10/6/uL (4.7-6.1); WHITE BLOOD CELLS 4.6 10/3/uL (4.5-10.5)
[2016-10-29 07:31] LABS: MANUAL DIFF NO %
[2016-10-29 07:46] LABS: BUN (BLOOD UREA NITROGEN) 11 MG/DL (6-23); CALCIUM, SERUM 8.1 MG/DL (8.5-10.4); CHLORIDE, SERUM 107 MMOL/L (96-112); CO2 (CARBON DIOXIDE) 28 MMOL/L (24-34); CREATININE 0.86 MG/DL (0.70-1.30); GFR AFRICAN AMERICAN 97 ML/MIN (>=60); GFR NON AFRICAN AMERICAN 84 ML/MIN (>=60); GLUCOSE, SERUM 88 MG/DL (60-99); POTASSIUM, SERUM 3.3 MMOL/L (3.5-5.3); SODIUM, SERUM 146 MMOL/L (135-148)
[2016-10-30 03:49] LABS: HEMATOCRIT 28.7 % (40.0-51.0); HEMOGLOBIN 9.1 g/dL (13.6-17.8); MEAN CORPUS HGB CONC 31.7 g/dL (32.0-36.0); MEAN CORPUSCULAR HEMOGLOB 26.1 pg (26.0-34.0); MEAN CORPUSCULAR VOLUME 82.5 fL (80-100); MEAN PLATELET VOLUME 9.8 fL (9.2-13.0); PLATELET COUNT 199 10/3/uL (150-400); RBC DISTRIBUTION WIDTH 16.6 % (12.0-16.0); RED CELL COUNT 3.48 10/6/uL (4.7-6.1); WHITE BLOOD CELLS 3.7 10/3/uL (4.5-10.5)
[2016-10-30 03:51] LABS: MANUAL DIFF YES %
[2016-10-30 03:57] LABS: INTERNATIONAL NORMAL RATI 1.2 UNITS (-)
[2016-10-30 04:02] LABS: BUN (BLOOD UREA NITROGEN) 11 MG/DL (6-23); CALCIUM, SERUM 7.6 MG/DL (8.5-10.4); CHLORIDE, SERUM 107 MMOL/L (96-112); CO2 (CARBON DIOXIDE) 29 MMOL/L (24-34); CREATININE 0.86 MG/DL (0.70-1.30); GFR AFRICAN AMERICAN 97 ML/MIN (>=60); GFR NON AFRICAN AMERICAN 84 ML/MIN (>=60); GLUCOSE, SERUM 94 MG/DL (60-99); PROTIME (NOT ORD) 14.8 SEC (12.0-14.5); SODIUM, SERUM 145 MMOL/L (135-148)
[2016-10-30 04:06] LABS: POTASSIUM, SERUM 3.9 MMOL/L (3.5-5.3)
[2016-10-30 04:15] LABS: EOSINOPHILS 10 %; EOSINOPHILS ABSOLUTE (CALC) 0.37 10/3/uL (0.0-0.53); LYMPHOCYTES 20 %; LYMPHOCYTES ABSOLUTE (CALC) 0.74 10/3/uL (0.67-4.30); MONOCYTES 13 %; MONOCYTES ABSOLUTE (CALC) 0.48 10/3/uL (0.21-1.20); NEUTROPHILS ABSOLUTE (CALC) 2.11 10/3/uL (2.02-8.40); SEGMENTED NEUTROPHIL (0) 57 %; TOTAL NUCLEATED CELLS 100
[2016-10-30 04:16] LABS: ANISOCYTOSIS 1+ (5-10/OIF) (0-5/OIF); PLATELET ESTIMATE ADQ (ADEQUATE); RBC MORPHOLOGY ABN (NORMAL)
== END 2016-10-30 20:00 | disposition hospice, inpatient (51) | DRG 270 ==
LOC: 1SO 21:26 → CVICU 10-23 16:19 → SDC/OF 10-24 16:11 → 2SO 10-24 16:33
PROVIDERS: Hospitalist; Internal Medicine; Internal Medicine Gastroenterology; Nurse Practitioner Family; Surgery
PROC: 06HM33Z Insertion of Infusion Device into Right Femoral Vein, Percutaneous Approach (ICD-10-PCS; 2016-10-23)
PROC: 3E05317 Introduction of Other Thrombolytic into Peripheral Artery, Percutaneous Approach (ICD-10-PCS; 2016-10-23)
PROC: B51D1ZZ Fluoroscopy of Bilateral Lower Extremity Veins using Low Osmolar Contrast (ICD-10-PCS; 2016-10-23)
PROC: 06CY3ZZ Extirpation of Matter from Lower Vein, Percutaneous Approach (ICD-10-PCS; principal; 2016-10-23 12:45)
PROC: 067G3ZZ Dilation of Left External Iliac Vein, Percutaneous Approach (ICD-10-PCS; 2016-10-24)
PROC: B5191ZZ Fluoroscopy of Inferior Vena Cava using Low Osmolar Contrast (ICD-10-PCS; 2016-10-24)
PROC: B51D1ZZ Fluoroscopy of Bilateral Lower Extremity Veins using Low Osmolar Contrast (ICD-10-PCS; 2016-10-24)
PROC: 067N3ZZ Dilation of Left Femoral Vein, Percutaneous Approach (ICD-10-PCS; 2016-10-24 12:45)
PROC: 067D3ZZ Dilation of Left Common Iliac Vein, Percutaneous Approach (ICD-10-PCS; 2016-10-24 12:45)
PROC: 0DJ08ZZ Inspection of Upper Intestinal Tract, Via Natural or Artificial Opening Endoscopic (ICD-10-PCS; 2016-10-26)
PROC: 30233N1 Transfusion of Nonautologous Red Blood Cells into Peripheral Vein, Percutaneous Approach (ICD-10-PCS; 2016-10-26)
DX: I82.423 Acute embolism and thrombosis of iliac vein, bilateral (principal); I26.99 Other pulmonary embolism without acute cor pulmonale; J96.11 Chronic respiratory failure with hypoxia; K22.11 Ulcer of esophagus with bleeding; Z99.81 Dependence on supplemental oxygen; D69.6 Thrombocytopenia, unspecified; D62 Acute posthemorrhagic anemia; J44.1 Chronic obstructive pulmonary disease with (acute) exacerbation; G30.9 Alzheimer's disease, unspecified; F02.80 Dementia in other diseases classified elsewhere, unspecified severity, without behavioral disturbance, psychotic disturbance, mood disturbance, and anxiety; I10 Essential (primary) hypertension; Z51.5 Encounter for palliative care; E11.9 Type 2 diabetes mellitus without complications; F32.9 Major depressive disorder, single episode, unspecified; F41.9 Anxiety disorder, unspecified; N40.0 Benign prostatic hyperplasia without lower urinary tract symptoms; J45.909 Unspecified asthma, uncomplicated; Z86.73 Personal history of transient ischemic attack (TIA), and cerebral infarction without residual deficits; Z91.81 History of falling; Z86.718 Personal history of other venous thrombosis and embolism; Z86.711 Personal history of pulmonary embolism; Z87.01 Personal history of pneumonia (recurrent); Z90.49 Acquired absence of other specified parts of digestive tract; Z98.890 Other specified postprocedural states; Z79.899 Other long term (current) drug therapy
CPT/HCPCS: 36012; 36415; 36600; 37187; 37212; 37214; 37248; 37249; 71010; 71275; 75822; 75825; 80048; 80053; 81001; 82728; 82805; 82962; 83036; 83540; 83550; 83735; 84100; 84132; 84484; 85014; 85018; 85025; 85045; 85384; 85610; 85730; 86022; 86850; 86900; 86901; 86920; 87086; 93005; 93971; 94640; 97162-GP; 97530-GP; A9270-GY; C1725; C1757; C1769; C1887; C1894; C9113; J0360; J1170; J1200; J1940; J1953; J2250; J2370; J2405; J2916; J2997; J3010; P9016; P9040; P9045; Q9966; Q9967